=== PATIENT | male | born 1965 | race Caucasian/White ===

== ENCOUNTER 2016-10-11 09:49 | Emergency (ER) | payer OTHER ==
[2016-10-11 09:56] VITALS: BP 153/130; PULSE 88; TEMP 97.5; BMI 40.4
--- NOTE | 2016-10-11 10:05 | PDOC ---
History of Present Illness - General History Source: Patient Exam Limitations: No Limitations - History of Present Illness Initial Comments: 10/11/16 12:36 The patient is a 50 year old male, with a significant past medical history of HTN and high cholesterol, who presents to the emergency department with severe RUQ abdominal pain occurring this morning. He ranks his abdominal pain a 10/10 in pain intensity. He describes his pain as a throbbing sensation with some radiation to his back. The patient reports waking up and having acute onset of his pain. He reports being his normal baseline yesterday night. He reports having kidney stones a years ago, but reports the pain he is presenting with the day is not similar to his kidney stone pain. He denies any recent fevers, chills, headache or dizziness. He denies any recent vomit, diarrhea or constipation. He denies any recent chest pain or shortness of breath. He denies any recent dysuria, frequency, urgency or hematuria. Last bowel movement was at 3 am today. Allergies: NKA Past surgical history: Appendectomy Social History: Nonsmoker. Denies drug use. <Saji Duong - Last Filed: 10/11/16 12:36> <Neil Villanueva - Last Filed: 10/12/16 08:36> - General Chief Complaint: Pain Stated Complaint: GALLBLADDER ATTACK Time Seen by Provider: 10/11/16 10:02 Past History <Saji Duong - Last Filed: 10/11/16 12:36> - Past Medical History Other medical history: denies - Surgical History Appendectomy: Yes - Psycho/Social/Smoking Cessation Hx Suicidal Ideation: No Smoking History: Never smoked Information on smoking cessation initiated: No Hx Alcohol Use: Yes Drug/Substance Use Hx: No Substance Use Type: None <Neil Villanueva - Last Filed: 10/12/16 08:36> - Past Medical History Allergies/Adverse Reactions: Allergies Allergy/AdvReac Type Severity Reaction Status Date / Time No Known Allergies Allergy Verified 10/11/16 09:56 Home Medications: Ambulatory Orders NK [No Known Home Medication] 10/11/16 Review of Systems - Review of Systems Able to Perform ROS?: Yes Comments:: 10/11/16 12:36 CONSTITUTIONAL: No reported: Fever, Chills, Diaphoresis, Generalized Weakness, Malaise, Loss of Appetite HEENT: No reported: Rhinorrhea, Nasal Congestion, Throat Pain, Throat Swelling, Difficulty Swallowing, Mouth Swelling, Ear Pain, Eye Pain, Visual Changes CARDIOVASCULAR: No reported: Chest Pain, Syncope, Palpitations, Irregular Heart Rate, Lightheadedness, Peripheral Edema RESPIRATORY: No reported: Cough, Shortness of Breath, SOB with Exertion, Orthopnea, Wheezing , Stridor, Hemoptysis GASTROINTESTINAL: +Abdominal pain and Nausea. No reported: Abdominal Distension, Vomiting, Diarrhea, Constipation, Melena, Hematochezia GENITOURINARY: No reported: Dysuria, Frequency, Urgency, Hesitancy, Flank Pain, Genital Pain MUSCULOSKELETAL: No reported: Myalgia, Arthralgia, Joint Swelling, Back pain, Neck Pain SKIN: No reported: Rash, Itching, Pallor HEMATOLOGIC/IMMUNOLOGIC: No reported: Easy Bleeding, Easy Bruising, Lymphadenopathy, Frequent infections ENDOCRINE: No reported: Unexplained Weight Gain, Unexplained Weight Loss, Heat Intolerance , Cold Intolerance NEUROLOGIC: No reported: Headache, Focal Weakness, Paresthesias, Vertigo, Lightheadedness, Unsteady Gait, Seizure, Mental Status Changes, Incontinence PSYCHIATRIC: No reported: Anxiety, Depression <Saji Duong - Last Filed: 10/11/16 12:36> *Physical Exam - Vital Signs Last Vital Signs Temp Pulse Resp BP Pulse Ox 97.5 F L 88 18 153/130 98 10/11/16 09:53 10/11/16 09:53 10/11/16 09:53 10/11/16 09:53 10/11/16 09:53 - Physical Exam Comments: 10/11/16 12:36 GENERAL: The patient is awake, alert, and fully oriented, looks uncomfortable HEAD: Normocephalic, atraumatic. EYES: extraocular movements intact, sclera anicteric, conjunctiva clear. ENT: Normal voice, Moist mucous membranes. NECK: Normal range of motion, supple LUNGS: Breath sounds equal, clear to auscultation bilaterally. No wheezes, no rhonchi, no rales. HEART: Regular rate and rhythm, without murmur, rub or gallop. ABDOMEN: RUQ tenderness but negative murphies, Soft, normoactive bowel sounds. No guarding, no rebound.No CVA tenderness EXTREMITIES: Normal range of motion, no edema. No clubbing or cyanosis. No cords , erythema, or tenderness. NEUROLOGICAL: No facial asymmetry, Normal speech. movinga ll 4 extremities spontaneously and symmetrically PSYCH: Normal mood, normal affect. SKIN: Warm, Dry, normal turgor. <Saji Duong - Last Filed: 10/11/16 12:36> - Vital Signs Last Vital Signs Temp Pulse Resp BP Pulse Ox 97.5 F L 88 18 153/130 98 10/11/16 09:53 10/11/16 09:53 10/11/16 09:53 10/11/16 09:53 10/11/16 09:53 <Neil Villanueva - Last Filed: 10/12/16 08:36> Heart Score/ECG Review - ECG Impressions Comment:: 10/11/16 11:11 Twelve-lead EKG was performed and reviewed by me. There is normal sinus rhythm with a normal rate. Rate of 83 The axis is normal. The intervals are normal. There is normal R wave progression There are no ST or T wave abnormalities. Impression: Normal twelve-lead EKG <Neil Villanueva - Last Filed: 10/12/16 08:36> ED Treatment Course - LABORATORY CBC & Chemistry Diagram: 10/11/16 10:41 10/11/16 10:41 <Saji Duong - Last Filed: 10/11/16 12:36> - LABORATORY CBC & Chemistry Diagram: 10/11/16 10:41 10/11/16 10:41 <Neil Villanueva - Last Filed: 10/12/16 08:36> Medical Decision Making - Medical Decision Making 10/11/16 10:21 50y M hx of htn, hl, ?gb problems presents with sudden onset of RUQ pain since awakening this morning without associated feverchills, n/v, dysuria. on exam th pt appears uncomfortable has some tenderness in his RUQ suspect cholelithiasis vs nephrolithasis will obtain screening ekg will obtain blood work icludin gdcbc, cmp, lipase, ua will give toradol and fluids will obtain GB US 10/11/16 14:49 pts labs reivewed +hematuria US negative for gall stones CT shows no nephrolihtiasis, however there was mild hydronephorosis - pt has been pain free since early this morning --? passed stone? the pt is currently asypmtomatic. suspect possible passed kidney stone will have pt fu with PMD strict return precautions were discussed I discussed the physical exam findings, ancillary test results and final diagnoses with the patient. I answered all of the patient's questions. The patient was satisfied with the care received and felt comfortable with the discharge plan and treatment plan. The patient will call their primary care physician within 24 hours to arrange follow-up and will return to the Emergency Department with any new, persistent or worsening symptoms. A portion of this note was documented by scribe services under my direction. I have reviewed the details of the note, within reason, and agree with the documentation with the following case summary and management plan written by me <Neil Villanueva - Last Filed: 10/12/16 08:36> *DC/Admit/Observation/Transfer - Attestations Scribe Attestion: 10/11/16 10:17 Documentation prepared by Saji Duong, acting as medical education specialist for Neil Villanueva MD. <Saji Duong - Last Filed: 10/11/16 12:36> - Discharge Dispostion Admit: No <Neil Villanueva - Last Filed: 10/12/16 08:36> Diagnosis at time of Disposition: Kidney stone on right side - Discharge Dispostion Disposition: HOME Condition at time of disposition: Improved - Referrals Referrals: Jesica Negron [Primary Care Provider] - - Patient Instructions Printed Discharge Instructions: DI for Kidney Stones Additional Instructions: I suspect your pain was secondary to a passed kidney stone. There are signs suggestive of a kidney stone, however no kidney stone was seen on the CT, you may have passed it an durinated it out. Return to the emergency department immediately with ANY new, persistent or worsening symptoms including recurrent pain, fevers/chills, or other concerns. You MUST call and follow up with your doctor tomorrow for further evaluation of your symptoms. Results were discussed with you. Please make sure your doctor reviews the results of your emergency evaluation. A copy of your lab work and imaging results were provided, please review this with your doctor. Print Language: MONGOLIAN
[2016-10-11] MEDS ORDERED: KETOROLAC TROMETHAMINE 30 MG/1 ML VIAL IVPUSH ONE (10:16)
[2016-10-11] MEDS ORDERED: SODIUM CHLORIDE 1,000 ML IV ONE (10:16)
[2016-10-11] MEDS ORDERED: KETOROLAC TROMETHAMINE 30 MG/1 ML VIAL ONE (11:00)
[2016-10-11 11:26] LABS: BASOPHIL 0.6 % (0-2.0); EOSINOPHIL 0.6 % (0-4.5); MCH 28.1 pg (25.7-33.7); MCHC 34.1 g/dl (32.0-35.9); MEAN CELL VOLUME 82.6 fl (80-96); MEAN PLT VOLUME 7.4 fl (7.5-11.1); NEUTROPHILS 78.6 % (42.8-82.8); PLATELET COUNT 171 K/MM3 (134-434); RDW 13.6 % (11.9-15.9); WHITE BLOOD COUNT 5.6 K/mm3 (4.0-10.0)
[2016-10-11 11:51] LABS: URINE APPEARANCE CLEAR; URINE BILIRUBIN NEGATIVE (NEGATIVE); URINE COLOR STRAW; URINE GLUCOSE (UA) NEGATIVE (NEGATIVE); URINE KETONE NEGATIVE (NEGATIVE); URINE LEUK ESTERASE NEGATIVE (NEGATIVE); URINE NITRITE NEGATIVE (NEGATIVE); URINE PROTEIN NEGATIVE (NEGATIVE); URINE UROBILINOGEN NEGATIVE E.U./dl (0.2-1.0)
[2016-10-11 12:01] LABS: ALBUMIN 4.2 g/dl (3.4-5.0); ALK PHOS 67 U/L (45-117); ANION GAP 12 (8-16); BILIRUBIN,TOTAL 0.5 mg/dL (0.2-1.0); CO2 24 mmol/L (21-32); COCKROFT - GAULT 146.15; CREATININE 1.1 mg/dL (0.7-1.3); GLUCOSE,RANDOM 120 mg/dL (74-106); SGOT/AST 42 U/L (15-37); SGPT/ALT 72 U/L (12-78)
[2016-10-11 12:10] LABS: URINE BLOOD 3+ (NEGATIVE)
--- NOTE | 2016-10-11 14:11 | EKG ---
Test Reason : Blood Pressure : / mmHG Vent. Rate : 083 BPM Atrial Rate : 083 BPM P-R Int : 148 ms QRS Dur : 092 ms QT Int : 404 ms P-R-T Axes : 045 -09 032 degrees QTc Int : 474 ms NORMAL SINUS RHYTHM NORMAL ECG WHEN COMPARED WITH ECG OF 20-DEC-1997 14:14, NO SIGNIFICANT CHANGE WAS FOUND Confirmed by KATHY TERAN MD ([id number]) on 10/11/2016 2:11:12 PM Referred By: Confirmed By:KATHY TERAN MD
== END 2016-10-11 15:22 | disposition home or self-care (01) ==
LOC: JER 09:49
PROC: 3E0333Z Introduction of Anti-inflammatory into Peripheral Vein, Percutaneous Approach (ICD-10-PCS; principal; 2016-10-11)
DX: N13.2 Hydronephrosis with renal and ureteral calculous obstruction (principal)
CPT/HCPCS: 36415; 74176; 76705-TC; 80053; 81003; 81015; 83690; 85025; 93005; 93010; 99283-25

== ENCOUNTER 2020-10-18 15:17 | Emergency (ER) | payer OTHER ==
[2020-10-18 15:26] VITALS: TEMP 98.9; BMI 38.3
[2020-10-18] MEDS ORDERED: LORazepam 2 MG TABLET PO ONE (16:19)
[2020-10-18] MEDS ORDERED: SODIUM CHLORIDE 0.9% 500 ML INFUS.BAG IV ONE (16:19)
[2020-10-18 17:05] LABS: BASO % 0.4 % (0-2.0); EOS % 0.7 % (0-4.5); HEMATOCRIT 41.4 % (35.4-49); HEMOGLOBIN 14.1 GM/dL (11.7-16.9); LYMPH % 27.8 % (8-40); MCH 26.9 pg (25.7-33.7); MEAN PLT VOLUME 7.4 fl (7.5-11.1); MONO % 10.3 % (3.8-10.2); NEUT % 60.8 % (42.8-82.8); PLATELET COUNT 225 K/MM3 (134-434); RBC 5.23 M/mm3 (4.00-5.60); RDW 13.5 % (11.9-15.9); WHITE BLOOD COUNT 7.4 K/mm3 (4.0-10.0)
[2020-10-18] MEDS ORDERED: LORazepam 0.5 MG TABLET ONE (17:15)
[2020-10-18 17:22] LABS: METHADONE, UR NEGATIVE ng/ml (CUTOFF=300); OPIATES, URI NEGATIVE ng/ml (CUTOFF=300); PHENCYCLIDINE,URINE NEGATIVE ng/ml (CUTOFF=25); URINE BENZODIAZEPINES NEGATIVE ng/ml (CUTOFF=200)
[2020-10-18 17:23] LABS: URINE AMPHETAMINES NEGATIVE ng/ml (CUTOFF=500)
[2020-10-18 17:27] LABS: COCAINE, UR NEGATIVE ng/ml (CUTOFF=300); URINE BARBITURATES NEGATIVE ng/ml (CUTOFF=200)
[2020-10-18 17:28] LABS: CHLORIDE 107 mmol/L (98-107); SODIUM 141 mmol/L (136-145)
[2020-10-18 17:30] LABS: CALCIUM 8.9 mg/dL (8.5-10.1)
[2020-10-18 17:31] LABS: ALBUMIN 3.9 g/dl (3.4-5.0); ANION GAP 8 MMOL/L (8-16); BLOOD UREA NITROGEN 19.2 mg/dL (7-18); CO2 26 mmol/L (21-32); GLUCOSE,RANDOM 105 mg/dL (74-106); MAGNESIUM 2.3 mg/dL (1.8-2.4)
[2020-10-18 17:34] LABS: CREATININE 0.8 mg/dL (0.55-1.3); PHOSPHOROUS 3.9 mg/dL (2.5-4.9); SGOT/AST 21 U/L (15-37); SGPT/ALT 39 U/L (13-61)
[2020-10-18 17:35] LABS: TOT PROT 6.9 g/dl (6.4-8.2)
[2020-10-18 17:36] LABS: BILIRUBIN,TOTAL 0.3 mg/dL (0.2-1)
[2020-10-18 17:37] LABS: ALK PHOS 124 U/L (45-117)
[2020-10-18 17:38] VITALS: BP 159/97
[2020-10-18] MEDS ORDERED: SODIUM CHLORIDE 1,000 ML IV ONE (17:50)
[2020-10-18] MEDS ORDERED: LORazepam 2 MG/ML SDV VIAL ONE (17:55)
[2020-10-18] MEDS ORDERED: LORazepam 2 MG/ML SDV VIAL IVPUSH ONE (17:55)
[2020-10-18 18:56] VITALS: PULSE 92
== END 2020-10-18 19:08 | disposition home or self-care (01) ==
LOC: JER 15:17
PROC: 3E033NZ Introduction of Analgesics, Hypnotics, Sedatives into Peripheral Vein, Percutaneous Approach (ICD-10-PCS; principal; 2020-10-18)
PROC: 3E0337Z Introduction of Electrolytic and Water Balance Substance into Peripheral Vein, Percutaneous Approach (ICD-10-PCS; 2020-10-18)
DX: E05.90 Thyrotoxicosis, unspecified without thyrotoxic crisis or storm (principal); E00.2 Congenital iodine-deficiency syndrome, mixed type
CPT/HCPCS: 36415; 80053; 80307; 82550; 83735; 84100; 84439; 84443; 84481; 84484; 85025; 93005; 93010; 99284-25

== ENCOUNTER 2022-07-06 05:56 | Emergency (ER) | payer OTHER ==
[2022-07-06 06:08] VITALS: BMI 34.8
[2022-07-06 07:07] LABS: BASO % 0.7 % (0-2.0); EOS % 4.9 % (0-4.5); HEMATOCRIT 41.6 % (35.4-49); HEMOGLOBIN 14.2 GM/dL (11.7-16.9); MEAN CELL VOLUME 79.5 fl (80-96); MEAN PLT VOLUME 7.4 fl (7.5-11.1); MONO % 8.2 % (3.8-10.2); NEUT % 58.2 % (42.8-82.8); PLATELET COUNT 221 10^3/uL (134-434); RBC 5.24 M/mm3 (4.00-5.60); RDW 13.2 % (11.9-15.9); WHITE BLOOD COUNT 7.8 K/mm3 (4.0-10.0)
[2022-07-06 07:13] LABS: INR 0.91 (0.83-1.09); PROTHROMBIN TIME (PATIENT) 10.5 SEC (9.7-13.0)
[2022-07-06 07:16] LABS: ACTIVATED PTT 28.1 SECONDS (25.2-36.5); CALCIUM 8.7 mg/dL (8.5-10.1)
[2022-07-06 07:18] LABS: ALBUMIN 3.4 g/dl (3.4-5.0); BLOOD UREA NITROGEN 21.1 mg/dL (7-18); MAGNESIUM 1.8 mg/dL (1.8-2.4)
[2022-07-06 07:20] LABS: CREATININE 0.9 mg/dL (0.55-1.3)
[2022-07-06 07:21] LABS: TOT PROT 6.4 g/dl (6.4-8.2)
[2022-07-06 07:22] LABS: BILIRUBIN,TOTAL 0.3 mg/dL (0.2-1)
[2022-07-06] MEDS ORDERED: LOSARTAN POTASSIUM 50 MG TABLET PO ONE (08:27)
[2022-07-06] MEDS ORDERED: amLODIPine BESYLATE 10 MG TABLET (FP) PO ONE (08:27)
[2022-07-06] MEDS ORDERED: HYDROCHLOROTHIAZIDE 12.5 MG CAPSULE (FP) PO ONE (08:28)
[2022-07-06 10:32] VITALS: BP 164/104; PULSE 101; RESP 20; TEMP 98.1
== END 2022-07-06 10:33 | disposition left against medical advice (07) ==
LOC: JER 05:56
DX: J18.9 Pneumonia, unspecified organism (principal); E05.90 Thyrotoxicosis, unspecified without thyrotoxic crisis or storm
CPT/HCPCS: 0241U-QW; 36415; 71045-TC-FY; 71275-TC; 80053; 83735; 83880; 84439; 84443; 84484; 85025; 85610; 85730; 93005; 93010; 99285-25; Q9967